=== PATIENT | male | born 1960 | race Caucasian/White ===

== ENCOUNTER 2016-04-23 12:31 | Emergency (ER) | payer BC ==
[2016-04-23] MEDS ORDERED: IOPAMIDOL (ISOVUE 370) 100 ML BTL IV ONE (12:40)
[2016-04-23] MEDS ORDERED: NS 1,000 ML IV ONE (12:49)
--- NOTE | 2016-04-23 12:54 | EDPHY ---
H & P Time Seen by Provider: 04/23/16 12:48 HPI/ROS: CHIEF COMPLAINT: Stroke alert HISTORY OF PRESENT ILLNESS: The patient is a 48-year-old healthy man who had rotator cuff surgery prepared today by Dr. Joseline Hurst. After he recovered he began complaining of vision loss in his right eye. He only sees dark and light and motion. Does not have any history of cataract or retina disease. Has also noticed that he may have slight facial droop on the right. EMS was called. Stroke alert was called. The patient tells me that he feels completely normal. He does not have any appreciable tingling or numbness. Normal range of motion in his extremities other than his left arm being in a sling. But normal hand customer quality specialist. He did receive local anesthesia for the surgery but no scalene block and was on the left side. No known carotid artery disease. Patient was last seen normal at 745 a.m. preoperatively. REVIEW OF SYSTEMS: Constitutional: denies: chills, fever, recent illness, recent injury EENTM: See HPI Respiratory: denies: cough, shortness of breath Cardiac: denies: chest pain, irregular heart rate, lightheadedness, palpitations Gastrointestinal/Abdominal: denies: abdominal pain, diarrhea, nausea, vomiting, blood streaked stools Genitourinary: denies: dysuria, frequency, hematuria, pain Musculoskeletal: denies: joint pain, muscle pain Skin: denies: lesions, rash, jaundice, bruising Neurological: See HPI denies: headache, numbness, paresthesia, tingling, dizziness Hematologic/Lymphatic: denies: blood clots, easy bleeding, easy bruising Immunologic/allergic: denies: HIV/AIDS, transplant EXAM: GENERAL: Well-appearing, well-nourished and in no acute distress. HEAD: Atraumatic, normocephalic. EYES: Pupils equal round and reactive to light, extraocular movements intact, sclera anicteric, conjunctiva are normal. ENT: TMs normal, nares patent, oropharynx clear without exudates. Moist mucous membranes. NECK: Normal range of motion, supple without lymphadenopathy or JVD. LUNGS: Breath sounds clear to auscultation bilaterally and equal. No wheezes rales or rhonchi. HEART: Regular rate and rhythm without murmurs, rubs or gallops. ABDOMEN: Soft, nontender, normoactive bowel sounds. No guarding, no rebound. No masses appreciated. BACK: No CVA tenderness, no spinal tenderness, step-offs or deformities EXTREMITIES: Normal range of motion, no pitting or edema. No clubbing or cyanosis. NEUROLOGICAL: Cranial nerves II through XII grossly intact very slight facial droop on the right. Normal tongue protrusion. Normal speech, normal gait. 5/ 5 strength, normal movement in all extremities, normal sensation NIH stroke score of 4 considering the right-sided vision loss and very slight facial droop as the only positives PSYCH: Normal mood, normal affect. SKIN: Warm, dry, normal turgor, no visible rashes or lesions. Source: Patient Exam Limitations: No limitations - Medical/Surgical History Hx Asthma: No Hx Chronic Respiratory Disease: No Hx Diabetes: No Hx Cardiac Disease: No Hx Renal Disease: No Hx Cirrhosis: No Hx Alcoholism: No - Family History Significant Family History: No pertinent family hx - Social History Alcohol Use: Sober Drug Use: None Constitutional: Initial Vital Signs Temperature (C) 36.8 C 04/23/16 12:59 Heart Rate 77 04/23/16 12:59 Respiratory Rate 18 04/23/16 12:59 Blood Pressure 165/81 H 04/23/16 12:59 O2 Sat (%) 94 04/23/16 12:59 O2 Delivery Mode Room Air O2 (L/minute) 92 Allergies/Adverse Reactions: No Known Allergies Allergy (Unverified 04/23/16 13:03) Home Medications: Medication Instructions Recorded Aspirin 04/23/16 Fish Oil 04/23/16 SIMVASTATIN 04/23/16 Tylenol 04/23/16 Medical Decision Making - Diagnostics EKG Interpretation: An EKG obtained and was read and documented in trace view. Please see trace view for full reading and report. Sinus rhythm, no acute ischemic changes Imaging: Results: CT scan of the head was obtained. The results of the study are negative. The study was read by Dr. Hicks. I viewed the images myself on the PACS system. Results: CT scan of the head and neck angiogram was obtained. The results of the study are negative. The study was read by Dr. Hicks. I viewed the images myself on the PACS system. X-ray: chest x-ray was obtained. I viewed the images myself on the PACS system. My interpretation of the images is: negative for acute disease . The radiologist interpretation is left lower lobe nodule recommended follow-up x- ray. ED Course/Re-evaluation: 1:25 p.m. I discussed the case again with [facility]. The patient's family is now stating that his mildly crooked smile is baseline. He has no other deficits. This is a monocular vision loss. Questionable whether this is from ischemic retina or optic nerve a cetera. Radiology recommended MRI to rule out emboli or optic neuritis. I will also consult Ophthalmology. 1:45 p.m. On reexamination In a dark room the patient does have Afferent pupillary defect. His vision in the right eye is unable to detect because he cannot even see shapes. Left eye is 20/40. He does were glasses at baseline and does not have them. 2:00 p.m. I discussed the case again with Dr. Melissa Shaw. She recommended the patient come to our office for further evaluation. She suspects central retinal artery occlusion versus retrobulbar ischemic neuropathy. She would like to see him in her office immediately. Differential Diagnosis: Partial list of the Differential diagnosis considered include but were not limited to; CVA, retinal detachment, retinal hemorrhage, optic nerve stroke and although unlikely based on the history and physical exam, I also considered []. I discussed these differential diagnoses and the plan with the [patient] as well as the usual and expected course. The [patient understands] that the diagnosis is provisional and that in medicine we are not always correct and that further workup is often warranted. Usual and customary warnings were given. All of the [patient's] questions were answered. The [patient was] instructed to return to the emergency department should the symptoms at all worsen or return, otherwise to followup with the physician as we discussed. - Data Points Laboratory Results: Laboratory Results 04/23/16 12:45 04/23/16 12:45 Medications Given: Discontinued Medications Hydromorphone HCl (Dilaudid) 1 mg IVP EDNOW ONE Stop: 04/23/16 13:36 Last Admin: 04/23/16 13:49 Dose: 1 mg Sodium Chloride (Ns) 1,000 mls @ 0 mls/hr IV ONCE ONE PRN Reason: Wide Open Stop: 04/23/16 12:50 Last Admin: 04/23/16 13:04 Dose: 1,000 mls Departure - Departure Disposition: Home, Routine, Self-Care Clinical Impression: Vision loss of right eye Condition: Fair Instructions: Blurred Vision (ED) Additional Instructions: You have a small nodule on the chest x-ray revealed left lower lobe of her lung. We recommend follow-up in 2-3 weeks for re-evaluation with a repeat x- ray through your primary care physician. Referrals: Patient,NotPresent [Unknown] - As per Instructions Melissa Shaw MD [Non Staff Provider (MD)] - As per Instructions
[2016-04-23 12:57] LABS: % IMMATURE GRANULYOCYTES 0.5 % (0.0-1.1); ABSOLUTE IMMATURE GRANULOCYTES 0.06 10^3/uL (0.00-0.10); ADD DIFF? NO; ADD MORPH? NO; ADD SCAN? NO; ATYPICAL LYMPHOCYTE FLAG 0 (0-99); FRAGMENT RBC FLAG 10 (0-99); HEMATOCRIT 43.2 % (40.0-51.0); LEFT SHIFT FLG 0 (0-99); LIPEMIA HEMOLYSIS FLAG 90 (0-99); MEAN CELL HEMOGLOBIN 31.8 pg (27.9-34.1); MEAN CELL HEMOGLOBIN CONCENTR. 34.7 g/dL (32.4-36.7); MEAN CELL VOLUME 91.5 fL (81.5-99.8); MEAN PLATELET VOLUME 10.3 fL (8.7-11.7); PLATELET CLUMPS FLAG 20 (0-99); PLATELET COUNT 241 10^3/uL (150-400); RED BLOOD CELL COUNT 4.72 10^6/uL (4.40-6.38); RED CELL DISTRIBUTION WIDTH 12.1 % (11.5-15.2)
[2016-04-23 13:05] LABS: INR 0.95 (0.83-1.16); PROTIME(PATIENT) 12.6 SEC (12.0-15.0)
--- NOTE | 2016-04-23 13:06 | CPEKG ---
Heart Rate: 78 RR Interval: 769 P-R Interval: 192 QRSD Interval: 106 QT Interval: 392 QTC Interval: 447 P [place]: 25 QRS [place]: 116 T Wave [place]: 31 EKG Severity - NORMAL ECG - EKG Impression: SINUS RHYTHM Electronically Signed By: Zelalem Iraheta 23-Apr-2016 13:51:25
[2016-04-23 13:11] LABS: ANION GAP 11 mEq/L (8-16); CALCIUM 9.1 mg/dL (8.5-10.4); CARBON DIOXIDE 26 mEq/l (22-31); CHLORIDE 105 mEq/L (97-110); GLOMERULAR FILTRATION RATE > 60; GLUCOSE 121 mg/dL (70-100); POTASSIUM 4.5 mEq/L (3.5-5.2); SODIUM 142 mEq/L (134-144)
[2016-04-23] MEDS ORDERED: HYDROmorphONE/DILAUDID 1 MG/ML SYR IVP ONE (13:35)
--- NOTE | 2016-04-23 13:35 | PDCONSULT ---
[facility] Assistant Director Note: Telestroke Consult Demographics First Name Nahun Last Name Bo Date of 1960 Age: 56 Gender Male Referring Provider Dr Zelalem Iraheta Time of initial page ([facility] ): [id number] Time of return call ([facility] ): [id number] Time Ready to Initiate Telemed Consult ([facility] ): [id number] Consult Type Acute Stroke HPI Chief Complaint: right, visual disturbance Additional History (Free Text): 56 year old man with hyperlipidemia who is post-operative from left rotator cuff surgery this morning. He is last on well at 7:45 a.m. Upon Awakening in recovery he noticed trouble with right eye vision. Initially he thought his right eye was not opening because he could not see. Both eyes were opening normally by description of staff . he began to see some colored spots and the right vision at this time he has significantly black or chambers Vision he can the lights on the ceiling appear purple in color and he is just starting to appreciate motion of objects or people in the room with the right eye at this time. When he closes the right eye his vision is normal [facility]-- Past Medical History: Hyperlipidemia Social History: non-smoker, no drugs Medications: on lipid lowering agent, simvistatin 10 mg. Exam Vitals: vital signs reviewed SBP: 167 DBP: 104 Mental Status: awake, alert + oriented x 3, follows commands Language: normal speech, no aphasia, no dysarthria Cranial Nerves extra ocular movements intact, no facial droop, no dysarthria, face is normal per his spouse. Full visual field in left eye. Right eye dimished acuity. Motor: normal strength, normal bulk, no drift Sensory: normal sensation Cerebellar: normal cerebellar NIHSS Time ([facility]): [id number] LOC 1a: 0 = Alert; keenly responsive LOC 1b: 0 = Answers both questions correctly LOC Commands: 0 = Performs both tasks correctly Best Gaze: 0 = Normal Visual: 1 = Partial hemianopia Facial Palsy 0 = Normal symmetrical movements Motor Arm L: 0 = No drift; limb holds 90 (or 45) degrees for full 10 seconds Motor Arm R: 0 = No drift; limb holds 90 (or 45) degrees for full 10 seconds Motor Leg L: 0 = No drift; leg holds 30-degree position for full 5 seconds Motor Leg R: 0 = No drift; leg holds 30-degree position for full 5 seconds Limb Ataxia 0 = Absent Sensory: 0 = Normal; no sensory loss Best Language: 0 = No aphasia; normal Dysarthria: 0 = Normal Extinction + Inattention: 0 = No abnormality NIHSS: [address]: no bleed CTA Head no large vessel occlusion Assessment: Monocular vision loss, right eye, acute. Localization would be anterior to optic chiasm on the right. Globe itself or retrobulbar. 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 Differential includes ocular disease (retinal detachment) or other etiologies for retrobulbar disease (i.e. inflammatory) which is considered less likely. If ischemic he is outside treatment window for tPA consideration. Plan Lytic/Intervention: NOT IV or IA candidate tPA Exclusion (< 3hr window) Other (see free text) Labs CBC, Comprehensive metabolic panel, HgbA1c, TSH Additional Recommendations: Consult ophthalmology. Suggest aspirin but would also defer to ophtho if they would desire anticoagulation. MRI brain with orbital cuts, with and without contrast to best image remainder of brain and to consider retrobulbar etiologies that may be visible with MRI like optic neuritis. Discussed with patient and spouse at bedside via camera and with Dr. Iraheta by phone after patient assessment.
--- NOTE | 2016-04-23 13:37 | CT ---
CT Brain (Without Contrast) at 1242 hours History: Right eye visual loss. Recent surgery. Comparison: None. Technique: Axial computed tomographic images of the brain without contrast. Dose reduction technique s were utilized. Findings: Ventricles, cisterns, and sulci are slightly widened consistent with minimal atrophy. No h ydrocephalus, midline shift/herniation, or epidural/subdural hematomas. No acute intraparenchymal hem orrhage, definite infarct, or mass effect. Bone windows demonstrate no displaced fractures. Paranasal sinuses and mastoid air cells are clear. Impression: 1. Mild cerebral atrophy. 2. No acute hemorrhage, hydrocephalus, mass effect or definite acute infarct. 3. Recommend MRI of the brain without contrast enhancement, if there is continued clinical concern. Findings and recommendations discussed with Emergency Department physician, ESTUARDO LAZARO at 1310 hour, 04/23/2016. Final report concurs with initial preliminary interpretation.
--- NOTE | 2016-04-23 14:35 | DX ---
Portable Chest, Single View April 23, 2016 Indication: Acute neuro changes. Comparison: None. Findings: Lungs are clear except for minimal bibasilar linear atelectasis. A questionable pulmonary n odule overlies the anterior left fifth rib. No pneumothorax, edema, effusion. Impression: 1. Bibasilar atelectasis. 2. Equivalent left lower lobe pulmonary nodule. Recommend follow-up two-view chest to help further ch aracterize. Findings discussed with Emergency Department physician, Zelalem Iraheta, on April 23, 2016, at 142 3 hours.
[2016-04-23 14:38] VITALS: BP 166/98; PULSE 84; RESP 12; TEMP 97.9; O2SAT 96
--- NOTE | 2016-04-23 14:49 | CT ---
CT Angiogram Neck With Contrast Enhancement and Multiplanar Reconstructions at [address] Angiogram of the Brain CT Angiogram Neck History: Stroke protocol. Visual changes post surgery today. Technique: 1.25 mm axial multidetector helical CT imaging was performed through the brain and neck wh ile 85 mL Isovue-370 were injected intravenously without complication. The images were then transfer red to an independent workstation where multiplanar and three-dimensional reconstructions were perfor med by the interpreting physician and reviewed at multiple windows. Dose reduction techniques were ut ilized. CTA Findings: Aortic arch and origin of the great vessels demonstrate no evidence of significant athe rosclerotic disease. No evidence of flow-limiting stenosis, occlusion, or dissection involving bilate ral common carotid arteries, carotid bulbs, or internal carotid arteries. No significant atherosclero tic disease. Bilateral vertebral arteries appear codominant and patent without evidence of dissection , occlusion, or flow-limiting stenosis. Vertebrobasilar junction appears patent. No evidence of neck masses or significant adenopathy. Impression: 1. No evidence of carotid atherosclerotic disease, stenosis, occlusion, or dissection. 2. Patent vertebral arteries without occlusion or dissection. Measurement of carotid stenosis is based on the residual internal carotid diameter with [place] n Symptomatic Carotid Endarterectomy Trial (NASCET) based stenosis levels. CT Angiogram of the Brain Clinical Indications: Stroke protocol. Visual changes post surgery. Technique: CT angiogram of the brain and neck was performed with the uneventful intravenous administ ration of 85 mL Isovue-370 contrast. Multiplanar reconstructions including 3D reconstructions perform ed and evaluated on [employer] workstation in order to better evaluate the [place] vessels. Imag es were manipulated by the radiologist at the computer workstation. Dose reduction techniques were ut ilized. Findings: Major vessels of the [place] are adequately displayed, demonstrating no evidence of aneurysm, vascular malformation, flow-limiting stenosis, or occlusion. Bilateral cavernous interna l carotid arteries and vertebrobasilar system demonstrates no evidence of flow-limiting stenosis, ane urysm, occlusion, or dissection. Superior sagittal sinus, transverse sinuses, and major veins demonst rate no evidence of intraluminal thrombi. Impression: Negative CT angiogram of the brain. Findings and recommendations discussed with Emergency Department physician, Zelalem Iraheta at 1310 h ours, April 23, 2016. Final report concurs with initial preliminary interpretation.
== END 2016-04-23 14:38 | disposition home or self-care (01) ==
LOC: EDUNIT#
DX: H54.61 Unqualified visual loss, right eye, normal vision left eye (principal); Z79.82 Long term (current) use of aspirin
CPT/HCPCS: 82947-QW; 96374; J1170; Q9967